=== PATIENT | male | born 1945 | race Caucasian/White ===

== ENCOUNTER 2019-02-05 10:10 | Emergency (ER) | payer MEDICARE ==
[~2019-02-05] VITALS: Ht 165.1 cm; Wt 66.7 kg
[2019-02-05] MEDS ORDERED: IV NORMAL SALINE 1,000ML 1,000 ML IV ONE (10:30)
[2019-02-05] MEDS ORDERED: IPRATRPIUM/ALBUTEROL 0.5/2.5MG 3 ML NEBU. NEB ONE (10:30)
[2019-02-05 10:38] LABS: BASO % 0 % (0-3); EOS % 0 % (0-3); LYMPH # 0.3 x10^3/uL (1.0-4.8); LYMPH % 4 % (24-48); MEAN CORPUSCULAR HEMOGLOBIN 29 pg (25-35); MEAN CORPUSCULAR HGB CONC 33 g/dL (31-37); MEAN CORPUSCULAR VOLUME 88 fL (79-100); MONO # 0.9 x10^3/uL (0.0-1.1); MONO % 11 % (0-9); NEUT # 6.8 x10^3uL (1.8-7.7); NEUT % 85 % (31-73); PLATELET COUNT 164 x10^3/uL (140-400); RED BLOOD COUNT 2.39 x10^6/uL (4.30-5.70); RED CELL DISTRIBUTION WIDTH 16.8 % (11.5-14.5)
[2019-02-05 10:40] LABS: HEMOGLOBIN 6.9 g/dL (13.0-17.5)
--- NOTE | 2019-02-05 10:47 | PHYS DOC ---
Past History Past Medical History: Asthma, Depression Past Surgical History: No Surgical History Smoking: Cigarettes, Less than 1pk/day Alcohol Use: None Drug Use: None Adult General Chief Complaint Chief Complaint: ALTERED MENTAL STATUS HPI HPI Patient is a 73-year-old male brought in by EMS due to a reported altered mental status. Uncertain as to when this started. Per EMS, people that he lives with reported last seen him several days ago. He was found on the floor covered with feces and urine. History is limited from the patient due to altered mental status. He reports a cough, and that he has asthma. He denies any chest pain or palpitations. EMS reports that his fingerstick blood sugar was in the 100s.[] Review of Systems Review of Systems Constitutional: Denies fever or chills [] Eyes: Denies change in visual acuity, redness, or eye pain [] HENT: Denies nasal congestion or sore throat [] Respiratory: Denies cough or shortness of breath [] Cardiovascular: No chest pain or palpitations[] GI: Denies abdominal pain, nausea, vomiting, bloody stools or diarrhea [] : Denies dysuria or hematuria [] Musculoskeletal: Denies back pain or joint pain [] Integument: Denies rash or skin lesions [] Neurologic: Denies headache, focal weakness or sensory changes [] Endocrine: Denies polyuria or polydipsia [] All other systems were reviewed and found to be within normal limits, except as documented in this note. Allergies Allergies Allergies Coded Allergies Type Severity Reaction Last Updated Verified No Known Drug Allergies 02/05/19 No Physical Exam Physical Exam Constitutional: Well developed, well nourished, no acute distress, sleepy, non- toxic appearance. [] HENT: Normocephalic, atraumatic, bilateral external ears normal, oropharynx moist, no oral exudates, nose normal. [] Eyes: PERRLA, EOMI, conjunctiva normal, no discharge. [] Neck: Normal range of motion, no tenderness, supple, no stridor. [] Cardiovascular:Heart rate regular rhythm, no murmur [] Lungs & Thorax: Bilateral breath sounds clear to auscultation [] Abdomen: Bowel sounds normal, soft, no tenderness, no masses, no pulsatile masses. Rectal exam. So an enlarged prostate without any specific prostatic tenderness. Brown stool, no black tarry stool. [] Skin: Warm, dry, no erythema, no rash. [] Back: No tenderness, no CVA tenderness. [] Extremities: No tenderness, no cyanosis, no clubbing, ROM intact, no edema. [] Neurologic: Alert and oriented X [address], GCS 14, E3-V4-M6, normal motor function, normal sensory function, no focal deficits noted. [] Psychologic: Affect normal, judgement normal, mood normal. [] Current Patient Data Vital Signs Vital Signs Date Time Temp Pulse Resp B/P (MAP) Pulse Ox O2 Delivery O2 Flow Rate FiO2 02/05/19 10:24 98.1 57 98 Room Air 02/05/19 10:22 18 147/86 (106) EKG EKG EKG shows a sinus rhythm at 93 bpm, axis of 102rightward, right bundle-branch block, QTC of 483 ms, no old EKG available for comparison, no ST elevation. Interpreted by me at 11:15.[] Radiology/Procedures Radiology/Procedures CT HEAD WO CONTRAST Indication: Altered mental status. Exposure: One or more of the following individualized dose reduction techniques were utilized for this examination: 1. Automated exposure control 2. Adjustment of the mA and/or kV according to patient size 3. Use of iterative reconstruction technique. Technique: Standard imaging without intravenous contrast. No prior for comparison Intracranial arterial calcifications. No acute intracranial hemorrhage, mass effect, midline shift or abnormal extra-axial fluid collection. Low-density in the white matter bilaterally, a nonspecific finding, but which is commonly due to chronic small vessel ischemic disease in a patient of this age. Mild atrophy orbits appear unremarkable. No notable scalp swelling. Visualized sinuses are clear. No evidence of acute skull abnormality. IMPRESSION: Chronic findings, no evidence of acute intracranial hemorrhage or mass effect. PROCEDURE: PORTABLE CHEST 1V Portable chest, 02/05/2019: HISTORY: Cough, altered mental status The heart size is normal. There is calcific plaquing and tortuosity of the thoracic aorta. There are patchy pulmonary opacities bilaterally in a somewhat nodular pattern. Some of these opacities may lie in the bones. There is no evidence of pleural fluid. IMPRESSION: Bilateral scattered nodular pulmonary opacities suggesting metastatic disease versus multifocal infection. CT scanning is suggested for further evaluation. [] Course & Med Decision Making Course & Med Decision Making Pertinent Labs and Imaging studies reviewed. (See chart for details) ED course: Patient arrived, was placed in bed, and tolerated exam well. Due to concern initially for rhabdomyolysis given that the patient had possibly been laying on the ground for the past several days, IV fluids were started. As the laboratory testing and then imaging returned fluids were backed off due to concern for fluid overload especially given the chest x-ray findings. Patient was given Protonix due to concern for possible gastric source for the GI bleeding despite the lack of right red blood nor black tarry stools per rectum, given the Hemoccult positive stool and a low blood count. Patient was typed and screened and then typed and crossed for a unit of packed red cells given the low blood count. Consultation was made with the hospitalist service who accepted the patient for transfer over at [place] given there greater depth of cardiology, renal and other specialty services. After the return of the imaging findings, an initial dose of antibiotics was given to cover for the possibility of community-acquired pneumonia. Medical decision making: Patient with weakness and altered mental status that is probably multifactorial including anemia is likely secondary from a GI bleed. Renal failure, congestive heart failure probably as a result of the renal failure. Critical care time of 45 minutes for direct bedside care, interpretation of laboratory tests and imaging, and discussion with consultants.[] Dragon Disclaimer Dragon Disclaimer This electronic medical record was generated, in whole or in part, using a voice recognition dictation system. Departure Departure: Impression: Primary Impression: Altered mental status Additional Impressions: Weakness GI bleed Anemia Acute renal failure Congestive heart failure Disposition: 05 TRANSFER OTHER Admitting Physician: Kalani Rivas Condition: IMPROVED Referrals: PCP,NO (PCP) Problem Qualifiers Primary Impression: Altered mental status Altered mental status type: disorientation Qualified Codes: R41.0 - Disorientation, unspecified Additional Impressions: GI bleed GI bleed type/associated pathology: unspecified gastrointestinal hemorrhage type Qualified Codes: K92.2 - Gastrointestinal hemorrhage, unspecified Anemia Anemia type: unspecified type Qualified Codes: D64.9 - Anemia, unspecified Acute renal failure Acute renal failure type: unspecified Qualified Codes: N17.9 - Acute kidney failure, unspecified Congestive heart failure Heart failure type: unspecified Heart failure chronicity: unspecified Qualified Codes: I50.9 - Heart failure, unspecified LAM LUCAS DO Feb 05, 2019 10:47
[2019-02-05 10:54] LABS: ALBUMIN 3.8 g/dL (3.4-5.0); ALBUMIN/GLOBULIN RATIO 1.1 (1.0-1.7); ALK PHOS 81 U/L (46-116); ALT (SGPT) 20 U/L (16-63); ANION GAP 17 (6-14); AST (SGOT) 26 U/L (15-37); BLOOD UREA NITROGEN 121 mg/dL (8-26); BUN/CREATININE RATIO 12 (6-20); CALCIUM 8.3 mg/dL (8.5-10.1); CARBON DIOXIDE 18 mmol/L (21-32); CHLORIDE 104 mmol/L (98-107); CREATININE 10.1 mg/dL (0.7-1.3); GFR 5.1; GLUCOSE 104 mg/dL (70-99); MAGNESIUM 1.2 mg/dL (1.8-2.4); SODIUM 139 mmol/L (136-145); TOTAL BILIRUBIN 0.4 mg/dL (0.2-1.0); TOTAL PROTEIN 7.3 g/dL (6.4-8.2)
[2019-02-05 11:15] LABS: BARBITURATES NEG (NEG); BENZODIAZEPINES NEG (NEG); CANNABINOIDS NEG (NEG); COCAINE NEG (NEG); METHADONE NEG (NEG); OPIATES NEG (NEG); PHENCYCLIDINE NEG (NEG)
[2019-02-05 11:24] LABS: AMPHETAMINE/METHAMPHETAMINE NEG (NEG)
[2019-02-05 11:26] LABS: FECAL OB PT POSITIVE (NEG)
[2019-02-05] MEDS ORDERED: PANTOPRAZOLE IV 40 MG VIAL. IVP ONE (11:30)
[2019-02-05] MEDS ORDERED: PANTOPRAZOLE IV 40 MG VIAL. ONE (11:31)
[2019-02-05 11:45] LABS: BILIRUBIN,URINE NEG (NEG); CLARITY,URINE HAZY; COLOR,URINE YELLOW; GLUCOSE,URINE NEG (NEG); NITRITE,URINE NEG (NEG); UROBILINOGEN,URINE 0.2 mg/dL (0.2 mg/dL)
[2019-02-05 11:46] LABS: BACTERIA,URINE 0 /HPF (0-FEW); SQUAMOUS EPITHELIAL CELL,UR OCC /LPF
--- NOTE | 2019-02-05 11:49 | RAD ---
CT HEAD WO CONTRAST Indication: Altered mental status. Exposure: One or more of the following individualized dose reduction techniques were utilized for this examination: 1. Automated exposure control 2. Adjustment of the mA and/or kV according to patient size 3. Use of iterative reconstruction technique. Technique: Standard imaging without intravenous contrast. No prior for comparison Intracranial arterial calcifications. No acute intracranial hemorrhage, mass effect, midline shift or abnormal extra-axial fluid collection. Low-density in the white matter bilaterally, a nonspecific finding, but which is commonly due to chronic small vessel ischemic disease in a patient of this age. Mild atrophy orbits appear unremarkable. No notable scalp swelling. Visualized sinuses are clear. No evidence of acute skull abnormality. IMPRESSION: Chronic findings, no evidence of acute intracranial hemorrhage or mass effect. Electronically signed by: Ronnie Higgins MD (02/05/2019 11:46 AM) [id number]
[2019-02-05] MEDS ORDERED: ONDANSETRON PF 4 MG/2 ML VIAL. ONE (11:54)
--- NOTE | 2019-02-05 11:58 | RAD ---
Portable chest, 02/05/2019: HISTORY: Cough, altered mental status The heart size is normal. There is calcific plaquing and tortuosity of the thoracic aorta. There are patchy pulmonary opacities bilaterally in a somewhat nodular pattern. Some of these opacities may lie in the bones. There is no evidence of pleural fluid. IMPRESSION: Bilateral scattered nodular pulmonary opacities suggesting metastatic disease versus multifocal infection. CT scanning is suggested for further evaluation. Electronically signed by: Jackson Kingston MD (02/05/2019 11:55 AM) [facility]
[2019-02-05] MEDS ORDERED: ONDANSETRON PF 4 MG/2 ML VIAL. IV ONE (12:00)
[2019-02-05] MEDS ORDERED: AZITHROMYCIN 500 MG in IV NORMAL SALINE 250ML 250 ML IV ONE (12:15)
[2019-02-05] MEDS ORDERED: IV NORMAL SALINE 250ML 250 ML ONE (12:21)
[2019-02-05] MEDS ORDERED: IV NORMAL SALINE 50ML 50 ML ONE (12:21)
[2019-02-05] MEDS ORDERED: AZITHROMYCIN 500 MG VIAL. IV ONE (12:21)
[2019-02-05] MEDS ORDERED: cefTRIAXone SODIUM 1 GM VIAL ONE (12:21)
[2019-02-05] MEDS ORDERED: HALOPERIDOL LACT 5 MG/ML VIAL. IVP ONE (13:45)
[2019-02-05 14:02] VITALS: BP 115/59
[2019-02-05 14:33] VITALS: BP 136/80
--- NOTE | 2019-02-07 07:43 | EKG ---
[address] [address] Test Date: 2019-02-05 Test Time: 11:10:36 Pat Name: KRISTOFER SCHWARTZ Department: Room: Gender: M [employer] Evaluation Analyst: : 1945 Requested By: LAM LUCAS Order Number: [id number] Reading MD: Measurements Intervals Howe Rate: 93 P: 90 AL: 188 QRS: 102 QRSD: 140 T: 43 QT: 386 QTc: 483 Interpretive Statements SINUS RHYTHM RIGHTWARD AXIS RIGHT BUNDLE BRANCH BLOCK ABNORMAL ECG RI6.01 No previous ECG available for comparison
== END 2019-02-05 13:15 | disposition short-term general hospital (02) ==
LOC: ER 10:10
DX: R41.82 Altered mental status, unspecified (principal); K92.9 Disease of digestive system, unspecified; K92.2 Gastrointestinal hemorrhage, unspecified; R53.1 Weakness; D64.9 Anemia, unspecified; N17.9 Acute kidney failure, unspecified; I50.9 Heart failure, unspecified; J45.909 Unspecified asthma, uncomplicated; F32.9 Major depressive disorder, single episode, unspecified; F17.210 Nicotine dependence, cigarettes, uncomplicated
CPT/HCPCS: 36415; 36430; 51702; 70450; 71045; 80053; 80307; 81001; 82274; 82550; 83605; 83735; 83880; 84484; 85025; 85610; 85730; 86850; 86900; 86901; 86920; 87040; 93005; 94640; 96361; 96365; 96366; 96374; 96375; 99291; C9113; J0456; J0696; J1630; J2405; J7050; J7620; P9016; 99285-25; J7030

== ENCOUNTER 2019-02-22 22:51 | Observation (INO) | payer MEDICARE ==
[~2019-02-22] VITALS: Ht 182.9 cm; Wt 56.8 kg
--- NOTE | 2019-02-22 23:05 | ED.ADGEN ---
Past History Past Medical History: Asthma, CAD, Cancer, CHF, Depression, Renal Disease, Renal Failure, UTI Past Surgical History: No Surgical History Smoking: Cigarettes, Less than 1pk/day Alcohol Use: None Drug Use: None Adult General Chief Complaint Chief Complaint ".. I don't want to kill myself.. I Just want this catheter out... ".. that all I just want it out... this is second time I ve had to have one..." [facility] HPI Patient is a 73 year old male who presents with complaints that his urinary catheter is bothering him and he wants it out. Patient states that T emergency room by [facility] because of suicidal ideation. Patient states he is not suicidal. Patient does have a history of malignant neoplasm of prostate and urinary retention. Pt. does have a history of depressive disorder recurrent, has history of metastatic prostate cancer, urinary retention ,A. fib, chronic obstructive pulmonary disease, asthma,dysphagia, anemia, renal insufficiency and deconditioning. Patient has been a resident at [facility] since 02/19. Patient primary care Dr. Weems and Dr. Dar Larios. Pt. reportedly on Hospice care and DNR. Pt. has not had any ativan or morphine as per his Prison Orders this past shift.. Pt. per staff [facility] was demanding removal of his Rae catheter. Patient reportedly threatening the nurses and that he was going to harm himself if they did not remove the Rae catheter. [facility] sent pt [facility] admit Not pre approved. No doctor order for transfer. Note Rae catheter appeared to be obstructed. Does have urine leakage around the Rae catheter. Review of Systems Review of Systems Constitutional: Denies fever or chills [] Eyes: Denies change in visual acuity, redness, or eye pain [] HENT: Denies nasal congestion or sore throat [] Respiratory: Denies cough or shortness of breath [] Cardiovascular: No additional information not addressed in HPI [] GI: Denies abdominal pain, nausea, vomiting, bloody stools or diarrhea [] : Denies dysuria or hematuria [ . Pt. has ]complaints of his Rae catheter and bladder pain. Musculoskeletal: Denies back pain or joint pain [] Integument: Denies rash or skin lesions [] Neurologic: Denies headache, focal weakness or sensory changes [] Endocrine: Denies polyuria or polydipsia [] All other systems were reviewed and found to be within normal limits, except as documented in this note. Family History Family History Not available Current Medications Current Medications Current Medications Medications (Trade) Dose Ordered Sig/Luis Start Time Stop Time Status Last Admin Dose Admin Albuterol/ Ipratropium (Duoneb) 3 ml 1X ONCE 02/23/19 01:15 02/23/19 01:16 DC 02/23/19 01:15 3 ML Calcium Chloride 1000 mg/Sodium Chloride 60 ml @ 120 mls/hr 1X ONCE 02/23/19 01:15 02/23/19 01:44 DC Ceftriaxone Sodium 1 gm/ Sodium Chloride 50 ml @ 100 mls/hr 1X ONCE 02/23/19 01:15 02/23/19 01:44 DC 02/23/19 01:23 100 MLS/HR Ceftriaxone Sodium (Rocephin) 1 gm STK-MED ONCE 02/23/19 01:12 02/23/19 01:13 DC Furosemide (Lasix) 40 mg STK-MED ONCE 02/23/19 01:12 02/23/19 01:13 DC Lactated Ringer's 1,000 ml @ 100 mls/hr Q10H 02/22/19 23:15 02/23/19 02:19 DC 02/23/19 00:01 100 MLS/HR Lorazepam (Ativan Inj) 2 mg PRN QID PRN 02/23/19 01:30 Morphine Sulfate (Morphine 4mg Syringe) 4 mg PRN Q2HR PRN 02/23/19 01:30 02/24/19 01:29 Ondansetron HCl (Zofran) 4 mg PRN Q4HRS PRN 02/23/19 01:30 02/24/19 01:29 Sodium Bicarbonate (Sodium Bicarb Adult 8.4% Syr) 50 meq STK-MED ONCE 02/23/19 01:12 02/23/19 01:13 DC See [place] record Allergies Allergies Allergies Coded Allergies Type Severity Reaction Last Updated Verified No Known Drug Allergies 02/23/19 No Physical Exam Physical Exam Constitutional: in acute distress until rae removed, then pt. comfortable, chronically ill in appearance. [] HENT: Normocephalic, atraumatic, bilateral external ears normal, oropharynx moist, no oral exudates, nose normal. Muscle wasting. Eyes: PERRLA, EOMI, conjunctiva normal, no discharge. [] Neck: Normal range of motion, no tenderness, supple, no stridor. [] Cardiovascular:Heart rate regular rhythm, no murmur []PMI to Lt. Lungs & Thorax: Bilateral breath sounds equal at apexes with scattered wheezes on auscultation []Basilar crackles. Abdomen: Bowel sounds normal, soft, pelvic tenderness, distended bladder, no pulsatile masses. [Rae.] Skin: Warm, dry, no erythema, no rash. Poor turgor. Pale. Diaper rash, skin break down groin and gluteal area. Back: No tenderness, no CVA tenderness. [] Extremities: No tenderness, no cyanosis, no clubbing, ROM intact, no edema. [] Arthritic changes. Muscle wasting. Neurologic: Alert and oriented X 2, moves all ext on requests, distal sensory, Psychologic: Affect angry, ,, mood depressed. Current Patient Data Vital Signs Vital Signs Date Time Temp Pulse Resp B/P (MAP) Pulse Ox O2 Delivery O2 Flow Rate FiO2 02/23/19 01:21 99 Room Air 02/23/19 00:55 73 20 119/64 (82) 02/22/19 22:55 98.8 Lab Results Laboratory Tests Test 02/22/19 23:56 White Blood Count 10.1 x10^3/uL (4.0-11.0) Red Blood Count 3.45 x10^6/uL (4.30-5.70) L Hemoglobin 10.0 g/dL (13.0-17.5) L Hematocrit 31.3 % (39.0-53.0) L Mean Corpuscular Volume 91 fL (79-100) Mean Corpuscular Hemoglobin 29 pg (25-35) Mean Corpuscular Hemoglobin Concent 32 g/dL (31-37) Red Cell Distribution Width 17.0 % (11.5-14.5) H Platelet Count 199 x10^3/uL (140-400) Neutrophils (%) (Auto) 87 % (31-73) H Lymphocytes (%) (Auto) 2 % (24-48) L Monocytes (%) (Auto) 10 % (0-9) H Eosinophils (%) (Auto) 0 % (0-3) Basophils (%) (Auto) 1 % (0-3) Neutrophils # (Auto) 8.7 x10^3uL (1.8-7.7) H Lymphocytes # (Auto) 0.2 x10^3/uL (1.0-4.8) L Monocytes # (Auto) 1.0 x10^3/uL (0.0-1.1) Eosinophils # (Auto) 0.0 x10^3/uL (0.0-0.7) Basophils # (Auto) 0.1 x10^3/uL (0.0-0.2) Segmented Neutrophils % 80 % (35-66) H Band Neutrophils % 1 % (0-9) Lymphocytes % 8 % (24-48) L Monocytes % 11 % (0-10) H Platelet Estimate Adequate (ADEQUATE) Hypochromasia Present Anisocytosis Present Microcytosis Present Prothrombin Time 10.5 SEC (9.4-11.4) Prothrombin Time INR 1.0 (0.9-1.1) PTT 25 SEC (23-33) Urine Collection Type U cath Urine Color Red Urine Clarity Cloudy Urine pH 8.5 Urine Specific [place] 1.020 Urine Protein 100 mg/dl (NEG-TRACE) Urine Glucose (UA) 100 mg/dL (NEG) Urine Ketones (Stick) Neg mg/dL (NEG) Urine Blood Large (NEG) Urine Nitrite Neg (NEG) Urine Bilirubin Neg (NEG) Urine Urobilinogen Dipstick 0.2 mg/dL (0.2 mg/dL) Urine Leukocyte Esterase Trace (NEG) Urine RBC >40 /HPF (0-2) Urine WBC 1-4 /HPF (0-4) Urine Squamous Epithelial Cells Occ /LPF Urine Bacteria Few /HPF (0-FEW) Sodium Level 138 mmol/L (136-145) Potassium Level 5.6 mmol/L (3.5-5.1) H Chloride Level 102 mmol/L (98-107) Carbon Dioxide Level 23 mmol/L (21-32) Anion Gap 13 (6-14) Blood Urea Nitrogen 61 mg/dL (8-26) H Creatinine 5.2 mg/dL (0.7-1.3) H Estimated GFR (Cockcroft-Gault) 10.9 Glucose Level 103 mg/dL (70-99) H Calcium Level 8.2 mg/dL (8.5-10.1) L Magnesium Level 1.9 mg/dL (1.8-2.4) Total Bilirubin 0.6 mg/dL (0.2-1.0) Direct Bilirubin 0.1 mg/dL (0.0-0.2) Aspartate Amino Transferase (AST) 31 U/L (15-37) Alanine Aminotransferase (ALT) 21 U/L (16-63) Alkaline Phosphatase 215 U/L (46-116) H Troponin I Quantitative < 0.017 ng/mL (0-0.055) CT-Zyl-C-Type Natriuretic Peptide 62322 pg/mL (0-124) H Total Protein 7.2 g/dL (6.4-8.2) Albumin 3.2 g/dL (3.4-5.0) L Urine Opiates Screen Neg (NEG) Urine Methadone Screen Neg (NEG) Urine Barbiturates Neg (NEG) Urine Phencyclidine Screen Neg (NEG) Urine Amphetamine/Methamphetamine Neg (NEG) Urine Benzodiazepines Screen Neg (NEG) Urine Cocaine Screen Neg (NEG) Urine Cannabinoids Screen Neg (NEG) Urine Ethyl Alcohol Neg (NEG) EKG EKG My interpretation of EKG shows a ventricular rhythm at 85. Right axis and right bundle branch block. No findings acute STEMI of contralateral changes. Wandering pacemaker versus first-degree block versus A. fib Radiology/Procedures Radiology/Procedures My interpretation of chest x-ray shows COPD changes as well as interstitial disease and nodular changes. Increased cephalization. CHF. DJD. Fluid in fissure. [] Course & Med Decision Making Course & Med Decision Making Pertinent Labs and Imaging studies reviewed. (See chart for details) Suspect pt. agitation was primary from distended bladder and obstructed rae catheter. Once removed pt. very calm Was able to urinate after removal of rae. Pt. states his brother can speak for him and make medical decision for him. Pt. does not know restaurant where his brother works or his brother's phone number or address. Pt. states his youngest son can speak for him and he has been helping him. Attempts to review [facility] medical record and contact brother- or son. No information currently available in computer or at [facility]. Discussed presentation, testing and treatment plan with Dr. Rivas- Will admit to [place] . A number for Chemo Harper ( son) was eventually located thru. Hospice- [phone]. Was able to talk to Chemo Harper- Youngest son. Advised to admit his father over night. His father is to remain on DNR status. States his father could be transfer back to [facility] in AM. Requested social service consult to help with issues. Advised he has not been able to complete conservator or guardianship on his father as yet, but he was making all the medical decisions and placement decisions for his father. [] Final Impression Final Impression 1. Rae - complaints[] ( Obstructed Rae) 2. Pt. Hx. Metastatic Prostate Cancer 3. Pt. on Hospice 4. Hx. Acute on Chronic Renal Failure 5. Hx. Obstructive Renal Failure 6. Hx. of CHF- BNP 28, 402 7. Hx. of COPD 8. Hyperkalemia 5.6 9. Anemia Hgb 10 10.Elevated BUN/Creat. 61/5.2 11. Elevate Alk Phos. 215 12. Hx. Dementia 13. UTI Dragon Disclaimer Dragon Disclaimer This electronic medical record was generated, in whole or in part, using a voice recognition dictation system. Discharge Summary Visit Information Final Diagnosis Problems Medical Problems: (1) Rae catheter problem Status: Acute Brief Hospital Course Allergies Allergies Coded Allergies Type Severity Reaction Last Updated Verified No Known Drug Allergies 02/23/19 No Vital Signs Vital Signs Date Time Temp Pulse Resp B/P (MAP) Pulse Ox O2 Delivery O2 Flow Rate FiO2 02/23/19 01:21 99 Room Air 02/23/19 00:55 73 20 119/64 (82) 02/22/19 22:55 98.8 Lab Results Laboratory Tests Test 02/22/19 23:56 White Blood Count 10.1 x10^3/uL (4.0-11.0) Red Blood Count 3.45 x10^6/uL (4.30-5.70) Hemoglobin 10.0 g/dL (13.0-17.5) Hematocrit 31.3 % (39.0-53.0) Mean Corpuscular Volume 91 fL (79-100) Mean Corpuscular Hemoglobin 29 pg (25-35) Mean Corpuscular Hemoglobin Concent 32 g/dL (31-37) Red Cell Distribution Width 17.0 % (11.5-14.5) Platelet Count 199 x10^3/uL (140-400) Neutrophils (%) (Auto) 87 % (31-73) Lymphocytes (%) (Auto) 2 % (24-48) Monocytes (%) (Auto) 10 % (0-9) Eosinophils (%) (Auto) 0 % (0-3) Basophils (%) (Auto) 1 % (0-3) Neutrophils # (Auto) 8.7 x10^3uL (1.8-7.7) Lymphocytes # (Auto) 0.2 x10^3/uL (1.0-4.8) Monocytes # (Auto) 1.0 x10^3/uL (0.0-1.1) Eosinophils # (Auto) 0.0 x10^3/uL (0.0-0.7) Basophils # (Auto) 0.1 x10^3/uL (0.0-0.2) Segmented Neutrophils % 80 % (35-66) Band Neutrophils % 1 % (0-9) Lymphocytes % 8 % (24-48) Monocytes % 11 % (0-10) Platelet Estimate Adequate (ADEQUATE) Hypochromasia Present Anisocytosis Present Microcytosis Present Prothrombin Time 10.5 SEC (9.4-11.4) Prothromb Time International Ratio 1.0 (0.9-1.1) Activated Partial Thromboplast Time 25 SEC (23-33) Urine Collection Type U cath Urine Color Red Urine Clarity Cloudy Urine pH 8.5 Urine Specific [place] 1.020 Urine Protein 100 mg/dl (NEG-TRACE) Urine Glucose (UA) 100 mg/dL (NEG) Urine Ketones (Stick) Neg mg/dL (NEG) Urine Blood Large (NEG) Urine Nitrite Neg (NEG) Urine Bilirubin Neg (NEG) Urine Urobilinogen Dipstick 0.2 mg/dL (0.2 mg/dL) Urine Leukocyte Esterase Trace (NEG) Urine RBC >40 /HPF (0-2) Urine WBC 1-4 /HPF (0-4) Urine Squamous Epithelial Cells Occ /LPF Urine Bacteria Few /HPF (0-FEW) Sodium Level 138 mmol/L (136-145) Potassium Level 5.6 mmol/L (3.5-5.1) Chloride Level 102 mmol/L (98-107) Carbon Dioxide Level 23 mmol/L (21-32) Anion Gap 13 (6-14) Blood Urea Nitrogen 61 mg/dL (8-26) Creatinine 5.2 mg/dL (0.7-1.3) Estimated GFR (Cockcroft-Gault) 10.9 Glucose Level 103 mg/dL (70-99) Calcium Level 8.2 mg/dL (8.5-10.1) Magnesium Level 1.9 mg/dL (1.8-2.4) Total Bilirubin 0.6 mg/dL (0.2-1.0) Direct Bilirubin 0.1 mg/dL (0.0-0.2) Aspartate Amino Transf (AST/SGOT) 31 U/L (15-37) Alanine Aminotransferase (ALT/SGPT) 21 U/L (16-63) Alkaline Phosphatase 215 U/L (46-116) Troponin I Quantitative < 0.017 ng/mL (0-0.055) BU-Hnh-W-Type Natriuretic Peptide 11330 pg/mL (0-124) Total Protein 7.2 g/dL (6.4-8.2) Albumin 3.2 g/dL (3.4-5.0) Urine Opiates Screen Neg (NEG) Urine Methadone Screen Neg (NEG) Urine Barbiturates Neg (NEG) Urine Phencyclidine Screen Neg (NEG) Urine Amphetamine/Methamphetamine Neg (NEG) Urine Benzodiazepines Screen Neg (NEG) Urine Cocaine Screen Neg (NEG) Urine Cannabinoids Screen Neg (NEG) Urine Ethyl Alcohol Neg (NEG) Brief Hospital Course Mr. Harper is a 73 old male who presented with COPD, Dementia, Acute on Chronic Renal Failure, CHF, UTI and rae issues. Admit to Dr. Rivas. Discharge Information Condition at Discharge: Improved Dischare Medications Current Medications Lactated Ringer's 1,000 ml @ 100 mls/hr Q10H IV Last administered on 02/23/19at 00:01; Admin Dose 100 MLS/HR; Start 02/22/19 at 23:15; Stop 02/23/19 at 02:19; Status DC Furosemide (Lasix) 40 mg 1X ONCE IVP Last administered on 02/23/19at 01:15; Admin Dose 40 MG; Start 02/23/19 at 01:15; Stop 02/23/19 at 01:16; Status DC Sodium Bicarbonate (Sodium Bicarb Adult 8.4% Syr) 50 meq 1X ONCE IV Last administered on 02/23/19at 01:22; Admin Dose 50 MEQ; Start 02/23/19 at 01:15; Stop 02/23/19 at 01:16; Status DC Calcium Chloride 1000 mg/Sodium Chloride 60 ml @ 120 mls/hr 1X ONCE IV ; Start 02/23/19 at 01:15; Stop 02/23/19 at 01:44; Status DC Albuterol/ Ipratropium (Duoneb) 3 ml 1X ONCE NEB Last administered on 02/23/19at 01:15; Admin Dose 3 ML; Start 02/23/19 at 01:15; Stop 02/23/19 at 01:16; Status DC Ceftriaxone Sodium 1 gm/ Sodium Chloride 50 ml @ 100 mls/hr 1X ONCE IV Last administered on 02/23/19at 01:23; Admin Dose 100 MLS/HR; Start 02/23/19 at 01:15; Stop 02/23/19 at 01:44; Status DC Furosemide (Lasix) 40 mg STK-MED ONCE .ROUTE ; Start 02/23/19 at 01:12; Stop 02/23/19 at 01:13; Status DC Ceftriaxone Sodium (Rocephin) 1 gm STK-MED ONCE .ROUTE ; Start 02/23/19 at 01:12; Stop 02/23/19 at 01:13; Status DC Sodium Bicarbonate (Sodium Bicarb Adult 8.4% Syr) 50 meq STK-MED ONCE .ROUTE ; Start 02/23/19 at 01:12; Stop 02/23/19 at 01:13; Status DC Ondansetron HCl (Zofran) 4 mg PRN Q4HRS PRN IV NAUSEA/VOMITING; Start 02/23/19 at 01:30; Stop 02/24/19 at 01:29 Morphine Sulfate (Morphine 4mg Syringe) 4 mg PRN Q2HR PRN IV PAIN; Start 02/23/19 at 01:30; Stop 02/24/19 at 01:29 Lorazepam (Ativan Inj) 2 mg PRN QID PRN IV anxiety , agitation; Start 02/23/19 at 01:30 Jihan Disclaimer This chart was dictated in whole or in part using Voice Recognition software in a busy, high-work load, and often noisy Emergency Department environment. It may contain unintended and wholly unrecognized errors or omissions. SMITHA BLEDSOE MD Feb 22, 2019 23:05
[2019-02-22] MEDS ORDERED: IV RINGERS SOLUTION,LACTATED 1,000 ML IV SCH (23:15)
--- NOTE | 2019-02-23 00:12 | RAD ---
Chest radiograph 02/22/2019 11:06 PM INDICATION: COPD COMPARISON: February 05, 2019 TECHNIQUE: Frontal view of the chest is provided. FINDINGS: The cardiomediastinal silhouette is within normal limits. There are no pleural effusions. There is no pulmonary vascular congestion. There is no pneumothorax. Coarse interstitial changes are identified throughout the lungs, not significantly changed since prior examination. There may be improved aeration of the right middle lobe. Multifocal nodular airspace disease noted in the left lung. No significant osseous abnormality is identified. IMPRESSION: Coarse interstitial changes may be chronic. However, there is more nodular airspace disease in the left lung which is increased. Consideration may be given for infectious/inflammatory pneumonitis. Electronically signed by: Nicolasa Holland MD (02/23/2019 12:09 AM) [facility]
[2019-02-23 00:29] LABS: BASO # 0.1 x10^3/uL (0.0-0.2); BASO % 1 % (0-3); EOS % 0 % (0-3); HEMATOCRIT 31.3 % (39.0-53.0); LYMPH # 0.2 x10^3/uL (1.0-4.8); LYMPH % 2 % (24-48); MEAN CORPUSCULAR HEMOGLOBIN 29 pg (25-35); MEAN CORPUSCULAR HGB CONC 32 g/dL (31-37); MEAN CORPUSCULAR VOLUME 91 fL (79-100); MONO % 10 % (0-9); NEUT # 8.7 x10^3uL (1.8-7.7); NEUT % 87 % (31-73); PLATELET COUNT 199 x10^3/uL (140-400); RED BLOOD COUNT 3.45 x10^6/uL (4.30-5.70); WHITE BLOOD COUNT 10.1 x10^3/uL (4.0-11.0)
[2019-02-23 00:31] LABS: BARBITURATES NEG (NEG); BENZODIAZEPINES NEG (NEG); CANNABINOIDS NEG (NEG); COCAINE NEG (NEG); METHADONE NEG (NEG); OPIATES NEG (NEG); PHENCYCLIDINE NEG (NEG)
[2019-02-23 00:36] LABS: BILIRUBIN,URINE NEG (NEG); CLARITY,URINE CLOUDY; COLOR,URINE RED; GLUCOSE,URINE 100 mg/dL (NEG); UROBILINOGEN,URINE 0.2 mg/dL (0.2 mg/dL)
[2019-02-23 00:37] LABS: BACTERIA,URINE FEW /HPF (0-FEW); NITRITE,URINE NEG (NEG); RBC,URINE >40 /HPF (0-2); SQUAMOUS EPITHELIAL CELL,UR OCC /LPF
[2019-02-23 00:39] LABS: AMPHETAMINE/METHAMPHETAMINE NEG (NEG)
[2019-02-23 00:41] LABS: ALBUMIN 3.2 g/dL (3.4-5.0); CALCIUM 8.2 mg/dL (8.5-10.1); CREATININE 5.2 mg/dL (0.7-1.3); DIRECT BILIRUBIN 0.1 mg/dL (0.0-0.2); GFR 10.9; MAGNESIUM 1.9 mg/dL (1.8-2.4); POTASSIUM 5.6 mmol/L (3.5-5.1); TOTAL BILIRUBIN 0.6 mg/dL (0.2-1.0); TOTAL PROTEIN 7.2 g/dL (6.4-8.2)
[2019-02-23 00:55] LABS: % BANDS 1 % (0-9); % LYMPHS 8 % (24-48); % MONOS 11 % (0-10); % SEGS 80 % (35-66); ANISOCYTOSIS PRESENT; HYPOCHROMIA PRESENT; MICROCYTOSIS PRESENT; PLT ESTIMATE ADEQUATE (ADEQUATE)
[2019-02-23] MEDS ORDERED: SODIUM BICARB ADULT 8.4% 50 MEQ/50 ML DISP.SYRIN. ONE (01:12)
[2019-02-23] MEDS ORDERED: cefTRIAXone SODIUM 1 GM VIAL ONE (01:12)
[2019-02-23] MEDS ORDERED: FUROSEMIDE 40 MG/4 ML VIAL ONE (01:12)
[2019-02-23] MEDS ORDERED: FUROSEMIDE 40 MG/4 ML VIAL IVP ONE (01:15)
[2019-02-23] MEDS ORDERED: SODIUM BICARB ADULT 8.4% 50 MEQ/50 ML DISP.SYRIN. IV ONE (01:15)
[2019-02-23] MEDS ORDERED: IPRATRPIUM/ALBUTEROL 0.5/2.5MG 3 ML NEBU. NEB ONE (01:15)
[2019-02-23] MEDS ORDERED: CALCIUM CHLORIDE 1,000 MG in IV NORMAL SALINE 50ML 50 ML IV ONE (01:15)
[2019-02-23] MEDS ORDERED: ONDANSETRON PF 4 MG/2 ML VIAL. IV PRN (01:30)
[2019-02-23] MEDS ORDERED: MORPHINE SULFATE 4 MG/ML DISP.SYRIN. IV PRN (01:30)
--- NOTE | 2019-02-23 03:35 | NUR ---
The patient, KRISTOFER SCHWARTZ, 73 y/o, M admitted by VERONICA RAIN MD, was given written information regarding hospital policies, unit procedures and contact persons. Valuables were checked and logged. Call light in reach. Will continue to monitor.
[2019-02-23 03:49] VITALS: BP 132/66
[2019-02-23] MEDS ORDERED: IPRATRPIUM/ALBUTEROL 0.5/2.5MG 3 ML NEBU. ONE (05:25)
[2019-02-23] MEDS: IPRATRPIUM/ALBUTEROL 0.5/2.5MG 3 ML NEBU. NEB SCH ×4 (05:29→20:58)
[2019-02-23] MEDS ORDERED: LORA2ORA8 PO (05:57)
[2019-02-23] MEDS ORDERED: IPRA3AMP29 NEB (05:57)
[2019-02-23] MEDS ORDERED: POLY2500 PO (05:57)
[2019-02-23] MEDS ORDERED: ALBU2.5V14 NEB (05:57)
[2019-02-23] MEDS: FUROSEMIDE 40 MG/4 ML VIAL IVP SCH (08:25)
[2019-02-23 09:31] LABS: ALBUMIN/GLOBULIN RATIO 0.8 (1.0-1.7); CALCIUM 7.3 mg/dL (8.5-10.1); CREATININE 5.7 mg/dL (0.7-1.3); GFR 9.8; POTASSIUM 3.9 mmol/L (3.5-5.1); TOTAL BILIRUBIN 0.3 mg/dL (0.2-1.0); TOTAL PROTEIN 6.6 g/dL (6.4-8.2)
[2019-02-23 09:45] LABS: BASO # 0.1 x10^3/uL (0.0-0.2); BASO % 1 % (0-3); EOS # 0.2 x10^3/uL (0.0-0.7); EOS % 2 % (0-3); HEMATOCRIT 26.9 % (39.0-53.0); HEMOGLOBIN 8.8 g/dL (13.0-17.5); LYMPH # 0.6 x10^3/uL (1.0-4.8); LYMPH % 7 % (24-48); MEAN CORPUSCULAR HEMOGLOBIN 30 pg (25-35); MEAN CORPUSCULAR HGB CONC 33 g/dL (31-37); MEAN CORPUSCULAR VOLUME 90 fL (79-100); MONO # 1.2 x10^3/uL (0.0-1.1); MONO % 14 % (0-9); NEUT # 6.4 x10^3uL (1.8-7.7); NEUT % 76 % (31-73); PLATELET COUNT 175 x10^3/uL (140-400); RED BLOOD COUNT 2.99 x10^6/uL (4.30-5.70); RED CELL DISTRIBUTION WIDTH 17.1 % (11.5-14.5); WHITE BLOOD COUNT 8.4 x10^3/uL (4.0-11.0)
[2019-02-23 14:08] VITALS: BP 142/60
--- NOTE | 2019-02-23 15:36 | HP ---
ADMIT DATE: 02/23/2019 HISTORY OF PRESENT ILLNESS: The patient is a 73-year-old male patient who was discharged from [facility] only recently to [facility]. He was admitted there with acute versus acute on chronic kidney injury, altered mental status and was found to have severe bilateral hydronephrosis. He was found also to have prostate cancer with the prostate specific antigen of 242. He has an indwelling Cortés catheter and was started on hemodialysis and he was also found to be extremely anemic with a hemoglobin of only 6.7. So he was transfused I believe 2 units of packed RBCs and was dialyzed 3 times a week; however, the CT scan of the chest, abdomen and pelvis showed that he has widespread metastatic sclerotic lesions throughout the vertebrae and skeletal system and we have had lengthy discussion with his son and a decision was made to consider hospice care as the patient is unable to take care of himself and was admitted to [facility] for end of life care and hospice. Hemodialysis was discontinued. Apparently, the [facility] nursing staff sent him to the Emergency Room because of suicidal ideation. The patient himself says, "I don't want to kill myself. I just want this catheter out. That is all I just wanted it out." He stated that he is not suicidal. He does have a history of malignant neoplasm of prostate and urinary retention. The patient does have a history of depressive disorder, recurrent history of metastatic prostate cancer and urinary retention. He also has multiple other medical problems and was in fact admitted to [facility] on 02/19/2019 to go on hospice. His code status was changed to DNR/DNI and was started on Ativan and morphine when he was discharged to [facility] from [facility]. Currently, he was demanding removal of his Cortés catheter. Reportedly, threatening the nursing staff there to have it removed. Otherwise, he will have himself if they did not remove the Cortés catheter. [facility]; however, there was no approval for him to be admitted there. Apparently he was evaluated in the Emergency Room. His Cortés catheter was removed. He was investigated in the Emergency Room and was admitted to [address] [place] [id number]. We will consult the psychiatrist as well as the social services director for placement. Dr. Ventura stated apparently his son does not want him to go to the [facility] anymore. PAST MEDICAL HISTORY: Significant for acute versus acute on chronic kidney injury due to severe bilateral hydronephrosis, right worse than left with bladder outlet obstruction requiring indwelling Cortés catheter for enlarged prostate with prostate cancer. His PSA was 242. He was found to have paroxysmal atrial fibrillation, rate controlled. Echocardiogram showed he has severe left ventricular systolic dysfunction, ejection fraction only 25%. CT scan of the head, chest, abdomen showed that he has extensive multifocal plastic osseous metastatic disease, most commonly prostatic in nature and dysphagia which was seen by the speech therapist. He is now on a dysphagia 1 with honey thickened liquid. PAST SURGICAL HISTORY: Significant for placement of a temporary hemodialysis catheter. ALLERGIES: He has no known drug allergies. He was discharged to [facility] to continue on Roxanol as well as Intensol for end of life care. FAMILY HISTORY: Unremarkable. SOCIAL HISTORY: He is , has at least 2-3 sons. He is an ex-smoker. He apparently was living with people that he is not related to. PHYSICAL EXAMINATION: GENERAL: On arrival to the Emergency Room, he was pale, cachectic, but not jaundiced or cyanosed. No lymphadenopathy, no thyromegaly. No jugular venous distension. No lower limb edema. VITAL SIGNS: Her heart rate was 77, blood pressure was 130/66, temperature was 98.2, respiratory rate was 22 and oxygen saturation was 98%. HEENT: Showed normocephalic, atraumatic. NECK: Supple. HEART: Showed normal first and second heart sounds. No gallop, rub or murmur. CHEST: Clear to auscultation. No crepitation or rhonchi. ABDOMEN: Scaphoid, soft, and nontender. NEUROLOGIC: He is awake, alert, responding appropriately. All cranial nerves intact. EXTREMITIES: He moves extremities without difficulty, though he is mostly bed bound. LABORATORY DATA: On arrival showed a white cell count of 10,000, hemoglobin 10, hematocrit 31, MCV 91, and platelet count of 199,000. His chemistry showed a serum sodium 138, potassium 5.6, chloride 102, bicarbonate 23, anion gap of 13, BUN 61, creatinine 5.2, estimated GFR was 10.9. His glucose was 103, calcium was 8.2, magnesium was 1.9. Total bilirubin, AST, ALT normal. Alkaline phosphatase was elevated. Beta natriuretic peptide was 28,000. Total protein was 7.2, albumin was 3.2. TSH was 4.257. His prothrombin time was 10.5, INR 1, aPTT was 25. Urinalysis showed the urine was red, cloudy with a pH of 8.5, specific gravity 1.020. There was large amount of protein, large amount of glucose, negative for ketones, large amount of blood, negative for nitrite. There was trace of leukocyte esterase, more than 40 rbc's, 1-4 wbc's, very few bacteria. His toxic screen was essentially negative. His chest x-ray showed that the patient has coarse interstitial changes identified throughout the lungs, not significant change since prior examination. There may be improved aeration of the right middle lobe, multifocal nodular airspace disease noted in the left lung. IMPRESSION: In summary, this is a 73-year-old male patient who is known to have widespread metastatic prostate cancer, also had probably end-stage renal disease, on hemodialysis secondary to obstructive uropathy, also had anemia of chronic kidney disease for which he received at least 2 units of blood at [facility]. Given his advanced age of prostate cancer and advanced age and marked debility discussion with his son was held about the goals of care and his son opted for hospice care at the [facility] with apparently the patient was sent to the Emergency Room to be [facility] because of suicidal ideation, although the patient was not suicidal according to him and he wanted to have his Cortés catheter removed. The patient was admitted to [address] [place] [id number] for evaluation. We will consult Dr. Henley to see the patient and we will consult our social services director for perhaps placement. VERONICA RAIN MD DR: BENJAMIN/shanda JOB#: [id number] / [id number]
[2019-02-23 19:55] VITALS: BP 118/60
[2019-02-23] MEDS: LACTOBACILLUS RHAMNOSUS GG 1 CAPSULE. PO SCH (21:07)
--- NOTE | 2019-02-23 21:55 | PDOC ---
Exam Note: Marcos Note: Please also refer to the separate dictated note~for this date of service dictated separately.~Patient seen individually. Discussed the patient with Nursing staff reviewed the chart.~Reviewed interim history and current functioning. Reviewed vital signs,~Labs/ Radiology~and current medications noted below. Continue current treatment with the changes noted in the dictated addendum note Assessment: Vital Signs/I&O: Vital Signs Date Time Temp Pulse Resp B/P (MAP) Pulse Ox O2 Delivery O2 Flow Rate FiO2 02/23/19 20:59 98 Room Air 02/23/19 19:55 75 15 118/60 (79) 02/23/19 03:49 98.2 I & O 02/22/19 02/22/19 02/23/19 14:59 22:59 06:59 Intake Total 930 ml Balance 930 ml Labs: Laboratory Tests Test 02/22/19 23:56 02/23/19 04:00 02/23/19 09:14 White Blood Count 10.1 x10^3/uL (4.0-11.0) 8.4 x10^3/uL (4.0-11.0) Red Blood Count 3.45 x10^6/uL (4.30-5.70) L 2.99 x10^6/uL (4.30-5.70) L Hemoglobin 10.0 g/dL (13.0-17.5) L 8.8 g/dL (13.0-17.5) L Hematocrit 31.3 % (39.0-53.0) L 26.9 % (39.0-53.0) L Mean Corpuscular Volume 91 fL (79-100) 90 fL (79-100) Mean Corpuscular Hemoglobin 29 pg (25-35) 30 pg (25-35) Mean Corpuscular Hemoglobin Concent 32 g/dL (31-37) 33 g/dL (31-37) Red Cell Distribution Width 17.0 % (11.5-14.5) H 17.1 % (11.5-14.5) H Platelet Count 199 x10^3/uL (140-400) 175 x10^3/uL (140-400) Neutrophils (%) (Auto) 87 % (31-73) H 76 % (31-73) H Lymphocytes (%) (Auto) 2 % (24-48) L 7 % (24-48) L Monocytes (%) (Auto) 10 % (0-9) H 14 % (0-9) H Eosinophils (%) (Auto) 0 % (0-3) 2 % (0-3) Basophils (%) (Auto) 1 % (0-3) 1 % (0-3) Neutrophils # (Auto) 8.7 x10^3uL (1.8-7.7) H 6.4 x10^3uL (1.8-7.7) Lymphocytes # (Auto) 0.2 x10^3/uL (1.0-4.8) L 0.6 x10^3/uL (1.0-4.8) L Monocytes # (Auto) 1.0 x10^3/uL (0.0-1.1) 1.2 x10^3/uL (0.0-1.1) H Eosinophils # (Auto) 0.0 x10^3/uL (0.0-0.7) 0.2 x10^3/uL (0.0-0.7) Basophils # (Auto) 0.1 x10^3/uL (0.0-0.2) 0.1 x10^3/uL (0.0-0.2) Segmented Neutrophils % 80 % (35-66) H Band Neutrophils % 1 % (0-9) Lymphocytes % 8 % (24-48) L Monocytes % 11 % (0-10) H Platelet Estimate Adequate (ADEQUATE) Hypochromasia Present Anisocytosis Present Microcytosis Present Prothrombin Time 10.5 SEC (9.4-11.4) Prothrombin Time INR 1.0 (0.9-1.1) PTT 25 SEC (23-33) Urine Collection Type U cath Urine Color Red Urine Clarity Cloudy Urine pH 8.5 Urine Specific [place] 1.020 Urine Protein 100 mg/dl (NEG-TRACE) Urine Glucose (UA) 100 mg/dL (NEG) Urine Ketones (Stick) Neg mg/dL (NEG) Urine Blood Large (NEG) Urine Nitrite Neg (NEG) Urine Bilirubin Neg (NEG) Urine Urobilinogen Dipstick 0.2 mg/dL (0.2 mg/dL) Urine Leukocyte Esterase Trace (NEG) Urine RBC >40 /HPF (0-2) Urine WBC 1-4 /HPF (0-4) Urine Squamous Epithelial Cells Occ /LPF Urine Bacteria Few /HPF (0-FEW) Sodium Level 138 mmol/L (136-145) 140 mmol/L (136-145) Potassium Level 5.6 mmol/L (3.5-5.1) H 3.9 mmol/L (3.5-5.1) # Chloride Level 102 mmol/L (98-107) 102 mmol/L (98-107) Carbon Dioxide Level 23 mmol/L (21-32) 24 mmol/L (21-32) Anion Gap 13 (6-14) 14 (6-14) Blood Urea Nitrogen 61 mg/dL (8-26) H 63 mg/dL (8-26) H Creatinine 5.2 mg/dL (0.7-1.3) H 5.7 mg/dL (0.7-1.3) H Estimated GFR (Cockcroft-Gault) 10.9 9.8 Glucose Level 103 mg/dL (70-99) H 91 mg/dL (70-99) Calcium Level 8.2 mg/dL (8.5-10.1) L 7.3 mg/dL (8.5-10.1) L Magnesium Level 1.9 mg/dL (1.8-2.4) Total Bilirubin 0.6 mg/dL (0.2-1.0) 0.3 mg/dL (0.2-1.0) Direct Bilirubin 0.1 mg/dL (0.0-0.2) Aspartate Amino Transferase (AST) 31 U/L (15-37) 17 U/L (15-37) Alanine Aminotransferase (ALT) 21 U/L (16-63) 17 U/L (16-63) Alkaline Phosphatase 215 U/L (46-116) H 195 U/L (46-116) H Troponin I Quantitative < 0.017 ng/mL (0-0.055) VS-Gbs-J-Type Natriuretic Peptide 98118 pg/mL (0-124) H Total Protein 7.2 g/dL (6.4-8.2) 6.6 g/dL (6.4-8.2) Albumin 3.2 g/dL (3.4-5.0) L 3.0 g/dL (3.4-5.0) L Thyroid Stimulating Hormone (TSH) 4.257 uIU/mL (0.358-3.740) Urine Opiates Screen Neg (NEG) Urine Methadone Screen Neg (NEG) Urine Barbiturates Neg (NEG) Urine Phencyclidine Screen Neg (NEG) Urine Amphetamine/Methamphetamine Neg (NEG) Urine Benzodiazepines Screen Neg (NEG) Urine Cocaine Screen Neg (NEG) Urine Cannabinoids Screen Neg (NEG) Urine Ethyl Alcohol Neg (NEG) Nasal Screen MRSA (PCR) Negative (Negative) BUN/Creatinine Ratio 11 (6-20) Albumin/Globulin Ratio 0.8 (1.0-1.7) L Current Medications: Meds: Current Medications Medications (Trade) Dose Ordered Sig/Luis Route PRN Reason Start Time Stop Time Status Last Admin Dose Admin Lactated Ringer's 1,000 ml @ 100 mls/hr Q10H IV 02/22/19 23:15 02/23/19 02:19 DC 02/23/19 00:01 Furosemide (Lasix) 40 mg 1X ONCE IVP 02/23/19 01:15 02/23/19 01:16 DC 02/23/19 01:15 Sodium Bicarbonate (Sodium Bicarb Adult 8.4% Syr) 50 meq 1X ONCE IV 02/23/19 01:15 02/23/19 01:16 DC 02/23/19 01:22 Albuterol/ Ipratropium (Duoneb) 3 ml 1X ONCE NEB 02/23/19 01:15 02/23/19 01:16 DC 02/23/19 01:15 Ceftriaxone Sodium 1 gm/ Sodium Chloride 50 ml @ 100 mls/hr 1X ONCE IV 02/23/19 01:15 02/23/19 01:44 DC 02/23/19 01:23 Albuterol/ Ipratropium (Duoneb) 3 ml RTQID NEB 02/23/19 08:00 02/24/19 07:59 02/23/19 20:58 Ceftriaxone Sodium 1 gm/ Sodium Chloride 50 ml @ 100 mls/hr Q24H IV 02/23/19 22:00 02/23/19 21:08 Furosemide (Lasix) 40 mg DAILY IVP 02/23/19 09:00 02/23/19 08:25 Lactobacillus Rhamnosus (Culturelle) 1 cap BID PO 02/23/19 21:00 02/23/19 21:07 I have reviewed the current psychotropics carefully including drug interactions. Risk benefit ratio favors no change other than as noted in my dictated progress note. Diagnosis: Problems: (1) Cortés catheter problem ELIZABETH PÉREZ MD Feb 23, 2019 21:55
[2019-02-24] MEDS: IPRATRPIUM/ALBUTEROL 0.5/2.5MG 3 ML NEBU. NEB SCH (04:52)
[2019-02-24 05:49] VITALS: BP 108/58
[2019-02-24 07:03] LABS: BASO # 0.1 x10^3/uL (0.0-0.2); BASO % 1 % (0-3); EOS # 0.5 x10^3/uL (0.0-0.7); EOS % 7 % (0-3); HEMATOCRIT 24.8 % (39.0-53.0); HEMOGLOBIN 8.1 g/dL (13.0-17.5); LYMPH # 0.8 x10^3/uL (1.0-4.8); LYMPH % 13 % (24-48); MEAN CORPUSCULAR HEMOGLOBIN 30 pg (25-35); MEAN CORPUSCULAR HGB CONC 33 g/dL (31-37); MEAN CORPUSCULAR VOLUME 91 fL (79-100); MONO # 0.8 x10^3/uL (0.0-1.1); MONO % 14 % (0-9); NEUT # 4.1 x10^3uL (1.8-7.7); NEUT % 66 % (31-73); PLATELET COUNT 173 x10^3/uL (140-400); RED BLOOD COUNT 2.74 x10^6/uL (4.30-5.70); RED CELL DISTRIBUTION WIDTH 16.7 % (11.5-14.5); WHITE BLOOD COUNT 6.3 x10^3/uL (4.0-11.0)
[2019-02-24 07:08] LABS: CREATININE 5.8 mg/dL (0.7-1.3); GFR 9.6
[2019-02-24] MEDS: FUROSEMIDE 40 MG/4 ML VIAL IVP SCH (09:00)
[2019-02-24] MEDS: LACTOBACILLUS RHAMNOSUS GG 1 CAPSULE. PO SCH (09:00)
[2019-02-24 11:31] VITALS: BP 124/68
--- NOTE | 2019-02-24 13:54 | NUR ---
print binding worker spoke to Benjamin David and patient is okay to go back today. Will be going by EMS and patient is aware.
--- NOTE | 2019-02-24 13:54 | DISCH ---
DISCHARGE ORDERS DISCHARGE DATE: Feb 24, 2019 FINAL DIAGNOSIS A/C KI Metastatic prostate cancer CONDITION AT DISCHARGE: Stable SNF STAY <30 DAYS: No HOSPICE: Yes HOSPICE EVALUATE & TREAT: Yes ORDERS Discharge Orders Discharge to [] SNU Certification [] Admit to: [] Labs: [] Diet: see below Activity: see below PT: [] OT: [] Other: [] FSBS: [] Oxygen: [] POST DISCHARGE ORDERS Activity Instructions for Disc: No restrictions Weight Bearing Status after Di: As tolerated Diet after Discharge: Regular DISCHARGE MEDICATION ORDERS Scheduled Ipratropium/Albuterol Sulfate (Duoneb 0.5-3(2.5) Mg/3 Ml), 3 ML NEB QID, (Reported) Scheduled PRN Lorazepam (Lorazepam Intensol), 0.25 ML PO PRN Q2HR PRN for ANXIETY / AGITATION, (Reported) Polyethylene Glycol 3350 (Polyethylene Glycol 3350), 17 GM PO DAILY PRN for CONSTIPATION, (Reported) Discontinued Medications Albuterol Sulfate (Albuterol Sulfate Conc Neb Soln), 2.5 MG NEB QID, (Reported) FOLLOW-UP Follow up with: [facility] VERONICA RAIN MD Feb 24, 2019 13:54
--- NOTE | 2019-02-24 14:15 | NUR ---
Nursing note: [facility]oke to [facility] to give report. 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
--- NOTE | 2019-02-24 14:53 | NUR ---
Nursing note: EMS here to get patient. Belongings sent with patient.
--- NOTE | 2019-02-24 18:18 | DS ---
DATE OF DISCHARGE: 02/24/2019 HOSPITAL COURSE: The patient is a 73-year-old male patient who is known to have end-stage renal disease secondary to benign prostatic hypertrophy, bladder outlet obstruction, severe bilateral hydronephrosis. He has also advanced stage 4 metastatic prostate cancer who was actually discharged recently from [facility] to go on hospice. He apparently has an indwelling Cortés catheter and he wanted it out. Apparently, nursing staff told that he was suicidal while he was uncomfortable. Anyhow, the catheter was taken out, he was admitted to the hospital for observation. His kidney function is steadily worsening. However, the patient does not complain of any discomfort. He already was accepted to be on hospice care as his prognosis is extremely poor and a decision was made to discharge him back to [facility] to continue on hospice without Cortés catheter. We explained to the nursing staff there that today he does not need the catheter and his kidney function will soon deteriorate further and probably will not last long. PHYSICAL EXAMINATION: GENERAL: When I examined him, he looked pale, cachectic, but no jaundice, cyanosis, or thyromegaly. No jugular venous distension. No limb edema. VITAL SIGNS: Her heart rate was 75, blood pressure 124/68, temperature was 98.3, respiratory rate 20, and oxygen saturation was 93%. HEAD, EYES, EARS, NOSE AND THROAT: Normocephalic, atraumatic. NECK: Supple. HEART: Showed normal first and second heart sounds. No gallop or murmur. CHEST: Clear to auscultation. No crepitation or rhonchi. ABDOMEN: Distended, soft, nontender. NEUROLOGIC: He is awake, alert, but very confused; however, all his cranial nerves are intact. He moves extremities spontaneously, although he is mostly bedbound, chair bound. He is extremely cachectic. LABORATORY DATA: Her lab work this morning showed a serum sodium 139, potassium 4, chloride 102, bicarbonate 23, anion gap of 14, BUN 66, creatinine 5.8. Calcium was 9.6. His glucose is 81, calcium was 7. His white cell count was 6300, hemoglobin 8, hematocrit 24, MCV 91, and platelet count of 173. DISCHARGE MEDICATIONS: He will be discharged back to [facility] to continue on Ativan for Intensol 2 mg per mL solution to give 0.5 to 1 mg, that is, 1-2 mg p.o. sublingually every 2 hours for anxiety and Roxanol 20 mg per mL solution to give 0.5-1 mL that is 10-20 mg p.o. sublingually every 2 hours for pain or shortness of breath. FINAL DISCHARGE DIAGNOSES: Acute on chronic kidney injury, bladder outlet obstruction with severe bilateral hydronephrosis, stage 4 advanced prostate cancer, advanced age. Marked debility and muscle wasting and weakness. VERONICA RIAN MD DR: BENJAMIN/shanda JOB#: [id number] / [id number]
--- NOTE | 2019-02-25 01:37 | CONS ---
DATE OF CONSULTATION: 02/23/2019 PSYCHIATRIC PROGRESS NOTE This late entry, 02/23/2019, covers elements not covered in my initial note. SUBJECTIVE: I met with the patient in the evening of 02/23/2019. IDENTIFYING DATA: The patient is a 73-year-old male, seen in ICU bed 5, [facility], for a psychiatric consult requested by Dr. Rivas on account of the patient's worsening symptoms of depression with suicidal ideation, which he expressed while he was at [facility] having been transferred there from [facility] recently. He was admitted there with acute versus [id number] kidney injury, altered mental status, and was found to have severe bilateral hydronephrosis. He was also found to have prostate cancer with prostate specific antigen of 242. He was on hospice care and progressively more depressed, hopeless, helpless, worthless and voiced suicidal ideation, thus prompting this referral to [facility] and admission to the ICU. The patient was seen individually, discussed with nursing staff, reviewed the chart. CHIEF COMPLAINT: "I needed the catheter out. Now, that it is out, I'm better." HISTORY OF PRESENT ILLNESS: The patient has significant medical comorbidities, resulting in hospice care with conditions noted above. He was extremely distressed with his indwelling Cortés catheter and had been on hemodialysis, also found to be extremely anemic, hemoglobin of 6.7, and had a packed RBC transfusion and dialyzed 3 times a week. He had a CT scan of the chest, abdomen and pelvis, showed multiple widespread metastatic sclerotic lesions throughout the vertebral and skeletal system and then transferred to [facility] on hospice care. He has had some sleep and appetite changes, but much of it consequent to his general medical condition. He denies active suicidal ideation at this time when I met with him. No clear history of bipolar disorder. Cognitively, he has had some short-term memory deficits. PAST PSYCHIATRIC HISTORY: As above. MEDICAL HISTORY: As noted above. He has severe left ventricular systolic dysfunction, ejection fraction of 25% only. He is on dysphagia 1 with honey thickened liquid diet. PAST SURGICAL HISTORY: Placement of temporary hemodialysis catheter. ALLERGIES: Negative. FAMILY HISTORY: Unremarkable. SOCIAL HISTORY: He has been and has 3 sons. He is an ex-smoker. 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 MENTAL STATUS EXAMINATION: The patient was seen individually, evening of 02/23/2019. He is lying in bed, not very verbal, interactive, does appear depressed, withdrawn, but again much of it probably due to his general medical condition. Speech is low in rate and rhythm, low in volume, often responses monosyllabic. He denies active psychotic symptoms, suicidal or homicidal ideation. He was unable to tell me the year or the name of the president and reported "I don't care," as I questioned him. I did not pursue this very much more given the overall condition. Attention span short. Language function intact. He is otherwise oriented to himself, situation. 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 Rest as above. RECOMMENDATION: From a psychiatric standpoint, I do not feel adding antidepressants at this stage would be of much benefit. He was really distressed with the indwelling Cortés catheter, and since this has been removed, nursing staff indicated he felt better and the patient alluded to this himself. I would not do anything differently. I believe the son is looking for alternate skilled nursing placement. Dr. Rivas, thank you for the opportunity to participate in your patient's care. We will follow with you. ELIZABETH PÉREZ MD DR: FRANCISCO/shanda JOB#: [id number] / [id number]
--- NOTE | 2019-02-25 07:47 | EKG ---
[address] [address] Test Date: 2019-02-22 Test Time: 23:18:34 Pat Name: KRISTOFER SCHWARTZ Department: Room: Gender: M Twister Doffer: SHASHANK : 1945 Requested By: SMITHA BLEDSOE Order Number: [id number] Reading MD: Measurements Intervals [place] Rate: 85 P: CT: QRS: 105 QRSD: 128 T: 65 QT: 408 QTc: 486 Interpretive Statements SINUS RHYTHM RIGHTWARD AXIS RIGHT BUNDLE BRANCH BLOCK ABNORMAL ECG RI6.01 No previous ECG available for comparison
== END 2019-02-24 14:55 ==
LOC: ER 22:51 → INTOOBSV 02-23 01:30 → ICU 02-23 01:30 → 1 SOUTH 02-24 05:59
PROVIDERS: ADMIT Internal Medicine; ATTEND Internal Medicine
DX: R41.82 Altered mental status, unspecified (principal); C61 Malignant neoplasm of prostate; C79.51 Secondary malignant neoplasm of bone; F06.4 Anxiety disorder due to known physiological condition; F32.9 Major depressive disorder, single episode, unspecified; I25.10 Atherosclerotic heart disease of native coronary artery without angina pectoris; I48.0 Paroxysmal atrial fibrillation; N39.0 Urinary tract infection, site not specified; R45.851 Suicidal ideations; J44.9 Chronic obstructive pulmonary disease, unspecified; D63.1 Anemia in chronic kidney disease; I50.9 Heart failure, unspecified; N17.9 Acute kidney failure, unspecified; R13.10 Dysphagia, unspecified; Z51.5 Encounter for palliative care; N18.6 End stage renal disease; Z66 Do not resuscitate; N40.1 Benign prostatic hyperplasia with lower urinary tract symptoms; N13.30 Unspecified hydronephrosis; N13.8 Other obstructive and reflux uropathy; R53.1 Weakness; R53.81 Other malaise; Z99.2 Dependence on renal dialysis; Z87.891 Personal history of nicotine dependence; Z85.46 Personal history of malignant neoplasm of prostate
CPT/HCPCS: 36415; 71045; 80048; 80053; 80076; 80307; 81001; 83735; 83880; 84443; 84484; 85007; 85025; 85610; 85730; 87086; 87641; 93005; 94640; 96361; 96365; 96366; 96375; 96376; 99284; G0378; G0379; J0696; J1940; J7120; J7620; 99285-25